=== PATIENT | female | born 1945 | race Caucasian/White ===

== ENCOUNTER → 2016-04-08 | Outpatient (CLI) | payer MEDICARE, BC ==
[~2016-04-08] MED LIST: HYDR-3583 PO; NICO14DI T-DERMAL; NYST1000 SWISH-SWAL; NYST15T; TRIA.025%T EXT; UMEC1AER INH; [UNRECOGNIZED DRUG - OTHER]
[2016-04-08 13:43] LABS: AUTOMATED NEUTROPHIL # 5.6 TH/MM3 (1.8-7.7); BASOPHIL # 0.1 TH/MM3 (0-0.2); BASOPHIL % 0.8 % (0.0-2.0); EOSINOPHIL # 0.1 TH/MM3 (0-0.4); EOSINOPHIL % 1.2 % (0.0-4.0); HEMATOCRIT 45.4 % (35.0-46.0); HEMO FLAGS DIFF FINAL; LYMPH % 20.7 % (9.0-44.0); LYMPHOCYTE # 1.7 TH/MM3 (1.0-4.8); MEAN CELL VOLUME 93.6 FL (80.0-100.0); MEAN CORPUSCULAR HEMOGLOBIN 31.6 PG (27.0-34.0); MEAN CORPUSCULAR HGB CONC 33.8 % (32.0-36.0); MONO % 9.6 % (0.0-8.0); NEUT % 67.7 % (16.0-70.0); PLATELET COUNT 238 TH/MM3 (150-450); RED BLOOD COUNT 4.85 MIL/MM3 (4.00-5.30); RED CELL DISTRIBUTION WIDTH 14.3 % (11.6-17.2); WHITE BLOOD COUNT 8.2 TH/MM3 (4.0-11.0)
[2016-04-08 13:45] LABS: BACTERIA, URINE RARE /hpf; BLOOD, URINE NEG (NEG); GLUCOSE,URINE NEG (NEG); KETONE, URINE NEG (NEG); NITRITE,URINE NEG (NEG); SQUAMOUS EPITHELIAL CELL URINE <1 /hpf (0-5); URINE COLOR LIGHT-YELLOW (YELLW/STRAW)
[2016-04-08 13:47] LABS: COMMENT (UR) CULT NOT INDICATED; CULTURE IF INDICATED CULT NOT INDICATED
[2016-04-08 13:49] LABS: APTT (PATIENT) 26.2 SEC (24.3-30.1); PROTHROMBIN TIME - PATIENT 11.1 SEC (9.8-11.6)
[2016-04-08 14:10] LABS: ALKALINE PHOSPHATASE 89 U/L (45-117); ALT (GPT) 20 U/L (10-53); ANION GAP 8 MEQ/L (5-15); AST (GOT) 20 U/L (15-37); BICARBONATE 28.4 MEQ/L (21.0-32.0); BLOOD UREA NITROGEN 17 MG/DL (7-18); CHLORIDE 103 MEQ/L (98-107); GLOMERULAR FILTRATION RATE 77 ML/MIN (>89); GLUCOSE,FASTING 92 MG/DL (74-99); SODIUM (NA) 139 MEQ/L (136-145); TOTAL BILIRUBIN ADULT 0.7 MG/DL (0.2-1.0)
--- NOTE | 2016-04-08 14:44 | RADRPT ---
EXAM DATE/TIME: 04/08/2016 14:24 [facility] COMPARISON: CHEST SINGLE AP, March 04, 2013, 16:04. INDICATIONS : Evaluate for Pneumonia, Pneumothorax or communicable disease MEDICAL HISTORY : None. SURGICAL HISTORY : Cervical fusion ENCOUNTER: Initial ACUITY: 1 day PAIN SCORE: 0/10 LOCATION: Bilateral chest FINDINGS: Examination reveals severe emphysema. No evidence of focal infiltrate or pleural effusion. Cardiomedi astinal contours are satisfactory. There is mild kyphoscoliosis present involving the spine. CONCLUSION: Severe emphysematous change. No acute or focal lung disease Braxton Ibarra MD on April 08, 2016 at 14:42 Board Certified Radiologist. This report was verified electronically.
--- NOTE | 2016-04-09 22:34 | EKG ---
Date Performed: 04/08/2016 Time Performed: 13:27:21 PTAGE: 71 years EKG: SINUS BRADYCARDIA WITH SHORT CA INTERVAL INCOMPLETE RIGHT BUNDLE BRANCH BLOCK BORDERLINE EC G Compared to prior tracing no significant change DOCTOR: Maira Marshall Interpretating Date/Time 04/09/2016 22:32:04
== END ==
LOC: CPRE 13:01
PROVIDERS: ATTEND Neurological Surgery
DX: Z01.810 Encounter for preprocedural cardiovascular examination (principal); Z01.811 Encounter for preprocedural respiratory examination; Z01.812 Encounter for preprocedural laboratory examination; M50.00 Cervical disc disorder with myelopathy, unspecified cervical region
CPT/HCPCS: 36415; 71020; 80053; 81001; 85025; 85610; 85730; 93005

== ENCOUNTER 2016-04-15 06:27 | Observation (INO) | payer MEDICARE, BC ==
[~2016-04-15] VITALS: Ht 139.7 cm; Wt 35.7 kg
[~2016-04-15 06:27] MED LIST changes: -HYDR-3583 PO; -NICO14DI T-DERMAL; -NYST1000 SWISH-SWAL; -[UNRECOGNIZED DRUG - OTHER]
[2016-04-15] MEDS ORDERED: METOPROLOL TARTRATE 25 MG TAB PO PRN (07:00)
[2016-04-15] MEDS ORDERED: INSULIN HUMAN REGULAR 1,000 UNITS/10 ML VIAL SQ PRN (07:00)
[2016-04-15] MEDS ORDERED: SODIUM CHLORID 0.9% 500 ML IV SCH (07:00)
[2016-04-15] MEDS ORDERED: VANCOMYCIN 1000 MG/NS 250 ML (for <70 kg) IV SCH ×2 (07:00)
[2016-04-15] MEDS ORDERED: LACTATED RINGER'S 1000 ML IV SCH (07:00)
[2016-04-15] MEDS ORDERED: ceFAZolin 2 GM PREMIX 50 ML IV SCH (07:00)
[2016-04-15] MEDS ORDERED: MICROFIBRILLAR COLLAGEN HEMOSTAT 70 X 35 MM BANDAGE ONE (07:19)
[2016-04-15] MEDS ORDERED: VANCOMYCIN HCL 1000 MG VIAL ONE (07:19)
[2016-04-15] MEDS ORDERED: GELFOAM SIZE 100 ONE (07:20)
[2016-04-15] MEDS ORDERED: THROMBIN (TOPICAL) 5,000 UNIT VIAL ONE (07:20)
[2016-04-15] MEDS ORDERED: NYST1000 SWISH-SWAL (07:20)
[2016-04-15 07:21] VITALS: BP 127/63; PULSE 57; RESP 22; TEMP 98.1; O2SAT 100
[2016-04-15] MEDS ORDERED: SODIUM CHLOR 0.9% 250 ML INJ 250 ML ONE (07:21)
[2016-04-15] MEDS ORDERED: GENTAMICIN SULFATE 80 MG/2 ML VIAL ONE (07:21)
[2016-04-15] MEDS ORDERED: MIDAZOLAM HCL 2 MG/2 ML VIAL ONE (08:30)
[2016-04-15] MEDS ORDERED: ONDANSETRON HCL 4 MG/2 ML VIAL IV PUSH ONE (08:48)
[2016-04-15] MEDS ORDERED: ePHEDrine/NS 25 MG/5 ML SYR IV ONE (08:48)
[2016-04-15] MEDS ORDERED: PROPOFOL 200 MG/20 ML AMP IV ONE (08:48)
[2016-04-15] MEDS ORDERED: LACTATED RINGER'S 1000 ML INJ 1,000 ML IV ONE (08:48)
[2016-04-15] MEDS ORDERED: PHENYLEPH/NS 1000 MCG/10 ML SYR IV ONE (08:48)
[2016-04-15] MEDS ORDERED: ARTIFICIAL TEARS OPTH OINT 3.5 APPLIC/3.5 GM TUBO ONE (11:44)
[2016-04-15] MEDS ORDERED: fentaNYL CITRATE 250 MCG/5 ML AMP ONE (11:44)
[2016-04-15] MEDS ORDERED: CYCLOBENZAPRINE HCL 10 MG TAB PO PRN (11:45)
[2016-04-15] MEDS ORDERED: MENTHOL LOZENGE SUCK-ON PRN (11:45)
[2016-04-15] MEDS ORDERED: SODIUM CHLORIDE 0.9% FLUSH 5 ML FLUSH IVF PRN (11:45)
[2016-04-15] MEDS ORDERED: BISACODYL 10 MG SUPP PR PRN (11:45)
[2016-04-15] MEDS ORDERED: MORPHINE SULFATE 4 MG/ML INJ IV PUSH PRN ×2 (11:45)
[2016-04-15] MEDS ORDERED: ACETAMINOPHEN/HYDROcodone 325 MG/10 MG TAB PO PRN ×2 (11:45)
[2016-04-15] MEDS ORDERED: ONDANSETRON HCL 4 MG/2 ML VIAL IV PRN (11:45)
[2016-04-15] MEDS ORDERED: NICO14DI T-DERMAL (11:47)
[2016-04-15] MEDS ORDERED: HYDR-3583 PO (11:49)
--- NOTE | 2016-04-15 12:05 | PD.OP ---
Operative Report Date of Surgery: Apr 15, 2016 Preoperative Diagnosis: CERVICAL SPINAL STENOSIS WITH MYELOPATHY Postoperative Diagnosis: CERVICAL SPINAL STENOSIS WITH MYELOPATHY Procedure: c3-4 cervical discectomy, interbody arthodhesis using PEEK cage filled with autologous bone graft, Vault C plate and screws. Anesthesia: GENERAL Surgeon: Gonzalo Fung Support Teacher(s): TALIA Wade Operation and Findings: INDICATIONS FOR THE PROCEDURE Ms Rios is a 71 year-old female who presented with intractable neck pain and clinical evidence of cervical myelopathy. She had significant stenosis and mass effect on the anterior spinal cord with edema and myelomalasia. She has failed maximum nonsurgical management including multiple modalities of conservative treatment as well as pain management interventions by an interventional pain specialist. A surgical decompression and arthrodhesis were indicated. The [id number] details of the procedure, indications, alternatives, risks and potential complications were fully discussed with the patient. The patient fully understood. All The questions were answered. No guarantees were given. The patient voiced requesting the procedure and provided informed consents. The patient was offered the alternative of delaying the procedure and continuing with nonsurgical management. DETAILS OF THE SURGICAL PROCEDURE After the induction of general anesthesia, endotracheal intubation was performed. A Eid catheter, bilateral AILEEN hose, and sequential compression devices were placed and kept throughout the procedure. Placement of electrodes for neurophysiological monitoring of the somatosensorial evoked potentials. motor evoked potentials, and EMG as well as laryngeal nerve monitoring was achieved. The patient was positioned supine on a Kanu table with the head over a gel doughnut. All pressure points were carefully padded with eggcrate mattress. The eyes were tapped shut after ointment was applied by the anesthesiologist to prevent corneal abrasion. A Calin hugger was placed over the exposed lower body to maintain control of the core body temperature. The electrophysiological team placed the needles and electrodes in their proper location and baseline SSEP's and motor evoked potentials were registered. The anterior cervical region was prepped and draped in the usual sterile fashion. A localizing x-ray was performed with a C-arm. The surgical procedure was performed in several steps as follow: SURGICAL APPROACH A skin incision was made along the superior cervical crease with a #10 blade. The dissection was carried out through the platysma exposing the sternocleidomastoid muscle. The cervical spine was approached following the fascial layers of the neck just medial to the anterior border of the sternocleidomastoid and carotid sheath by a combination of sharp and dull dissection. The tissues were severely abnormal and scarred, related to the previous radiation therapy to the neck. The omohyoid muscle was identified and carefully dissected laterally and the deep cervical fascia was carefully opened. The longus colli muscles were retracted to each side of the midline. An anterior osteophytic spur was removed. A marker was placed at the disc space C3-4 and a cross-table lateral x-ray performed with a C-arm. SURGICAL DECOMPRESSION In order to decompress the anterior surface of the spinal cord it was necessary to preform a microsurgical resection of the disk at C3-4. At this point in the procedure the operating microscope was draped in the usual sterile fashion and brought to the field. The rest of the surgical procedure was performed using microdissection technique with the exception of the closure. Under the operative microscopic, a self-retaining retractor was placed underneath the longus colli muscle. The annulus was incised with a #15 blade and a microdiscectomy was then carefully carried out using angled curets and pituitary forceps. There was a osteophitic/disk complex, which was producing severe mass effect and compression of the spinal cord. The posterior longitudinal ligament was then elevated with an angled curet and incised with a 15 bladed knife. A careful resection of the posterior longitudinal ligament was carried out using a thin footplate 2 mm Kerrison.A nerve hook was used to assess the epidural space behind the vertebral bodies C3 and C4 in search for residual disk fragments. The margins of the posterior endplates at C3 and C4 were carefully drilled and undercut with a TPS drill under high magnification. The decompression was then carried out laterally, and a bilateral foraminotomy was performed with a 2mm thin foot Kerrison. Then the vertebral bodies above and below the disk space were undercut using a 2 mm thin foot Kerrison. The epidural space was the systematically assessed with a nerve hook in search for disk fragments. An excellent decompression was achieved in both, the dural sac and bilateral exiting nerve roots. The incision was then irrigated with a large amount of antibiotic solution INTERBODY ARTHRODHESIS In order to avoid collapse of the disk space which would result in bilateral foraminal stenosis, and to increase the chances of a successful fusion, it was necessary to place an interbody cage filled with autologous bone. At this point of the procedure, the superior and inferior endplates were then evenly decorticated with a TPS drill. The use of a drill in combination with a curette allowed me to systematically remove the cartilaginous endplates, exposing healthy bone for the interbody arthrodesis. forteen millimeters distraction pins were then placed at the vertebral bodies adjacent to the disk space, and gentle distraction was applied. The size of the interbody cage was then assessed using different size spacers, and a rasp was used to ensure no residual cartilage. A PEEK cage of the appropriate size was selected, and the interbody arthrodesis was then preformed by carefully impacting a PEEK cage filled with autologous bone graft to the disc space C3-4. An excellent position of the cage was achieved. This was was confirmed anatomically by feeling the space posterior to the implant and distance to the anterior surface of the dural sac. Radiological confirmation of the position was performed with a cross lateral xray performed with the C-arm. INTERNAL INSTRUMENTAL FIXATION Once that the interbody device was in an appropriate position, it was necessary to stabilize the spine with anterior instrumentation. Anterior instrumentation has demonstrated to increase the rate of fusion, accelerate the patient's recovery, and decrease the rate of failed interbody grafts. The Titanium plate was attached to the anterior surface of the Vault C PEEK cage. Leather Sponger holes were then drilled using the drill, and the plate was then secured to the spine using self-drilling, self-tapping screws. A proper purchase was achieved with all screws and the position of the cage, plate and screws, and alignment of the spine was assessed anatomically by direct visualization, and radiologically by performing a cross lateral xray of the cervical spine with the C-arm. CLOSURE The incision was irrigated with several liters of antibiotic solution. Hemostasis was achieved with a bipolar. The screws were locked to prevent backing out. The incision was then closed in layers. 3-0 Vicryl with interrupted sutures was used to close the platysma and subcutaneous tissue. The skin was closed with 4-0 running subcuticular Vicryl and Dermabond was applied. The drain was secured with a 3-0 nylon. At the end of the procedure the sponge, needle and instrument counts were all correct. The estimated blood loss was less than 50 cc. No blood transfusion was given. No intraoperative complications occurred. The patient received prophylactic antibiotics. The patient was then extubated and transferred to the recovery room in stable condition. Gonzalo Fung MD Apr 15, 2016 12:05
[2016-04-15] MEDS: NYSTATIN SUSP 500,000 U/5 ML CUP SWISH-SWAL SCH ×2 (13:00→20:28)
[2016-04-15] MEDS ORDERED: NS + KCL 20 MEQ INJ 1,000 ML IV SCH (13:00)
[2016-04-15] MEDS ORDERED: NICOTINE 14 MG/24 HR PATCH TD ONE (13:00)
[2016-04-15] MEDS: DEXAMETHASONE SOD PHOS 4 MG/ML VIAL IV SCH (13:31)
[2016-04-15 13:48] VITALS: BP 116/67; PULSE 62; RESP 16; TEMP 95; O2SAT 100
[2016-04-15 19:30] VITALS: BP 125/58; PULSE 65; RESP 17; TEMP 96; O2SAT 99
--- NOTE | 2016-04-15 19:43 | RADRPT ---
EXAM DATE/TIME: 04/15/2016 09:01 [facility] COMPARISON: CT CERVICAL SPINE W/O CONTRAST W 3D RECON, April 29, 2012, 0:54. INDICATIONS : Fusion C3,C4. MEDICAL HISTORY : None. SURGICAL HISTORY : Fusion, cervical. ENCOUNTER: Initial ACUITY: 1 day PAIN SCORE: Non-responsive. LOCATION: Cervical spine. FINDINGS: Two projection examination was performed. Postsurgical changes following anterior cervical fusion are noted. There is an old fusion plate exten ding from C4-C6 which appear stable compared to prior CT. A new fusion apparatus has been inserted between the C3 and C4 vertebral bodies. There vertebral cage is identified in place. Cervical alignment appears to be well-maintained. CONCLUSION: Status post fusion at C3-4 with satisfactoryly maintained alignment. Be Restrepo MD on April 15, 2016 at 19:38 Board Certified Radiologist. This report was verified electronically.
[2016-04-15 19:58] VITALS: O2SAT 99
[2016-04-15] MEDS: SODIUM CHLORIDE 0.9% FLUSH 5 ML FLUSH IVF SCH (20:28)
[2016-04-15] MEDS: DOCUSATE SODIUM 100 MG CAP PO SCH (20:28)
[2016-04-15] MEDS: ACETAMINOPHEN 325 MG TAB PO PRN (20:35)
[2016-04-16] MEDS: DEXAMETHASONE SOD PHOS 4 MG/ML VIAL IV SCH ×3 (00:12→12:52)
[2016-04-16] MEDS: ceFAZolin 2 GM PREMIX 50 ML IV SCH ×2 (00:12→08:54)
[2016-04-16 00:25] VITALS: BP 100/54; PULSE 58; RESP 16; TEMP 95.6; O2SAT 98
[2016-04-16 04:25] VITALS: BP 105/60; PULSE 59; RESP 16; TEMP 97.7; O2SAT 98
[2016-04-16] MEDS: ACETAMINOPHEN 325 MG TAB PO PRN (05:57)
[2016-04-16] MEDS: DOCUSATE SODIUM 100 MG CAP PO SCH (07:59)
[2016-04-16 08:00] VITALS: BP 97/57; PULSE 66; RESP 18; TEMP 97.5; O2SAT 99
[2016-04-16] MEDS: SODIUM CHLORIDE 0.9% FLUSH 5 ML FLUSH IVF SCH (08:09)
[2016-04-16] MEDS: NYSTATIN SUSP 500,000 U/5 ML CUP SWISH-SWAL SCH ×2 (08:09→12:52)
[2016-04-16] MEDS ORDERED: PANTOPRAZOLE SOD 40 MG DELAYED RELEASE TAB PO SCH (09:00)
[2016-04-16 11:28] VITALS: O2SAT 98
[2016-04-16 12:00] VITALS: BP 100/60; PULSE 56; RESP 18; TEMP 96.4; O2SAT 99
--- NOTE | 2016-04-16 12:05 | HHI.DCPOC ---
Discharge Care Plan Diagnosis: (1) Status post cervical arthrodesis Goals to Promote Your Health * To prevent worsening of your condition and complications * To maintain your health at the optimal level Directions to Meet Your Goals Take your medications as prescribed Follow your dietary instruction Follow activity as directed Keep your appointments as scheduled Take your immunizations and boosters as scheduled If your symptoms worsen call your PCP, if no PCP go to Urgent Care Center or Emergency Room Smoking is Dangerous to Your Health. Avoid second hand smoke Call the 24-hour hour crisis hotline for domestic abuse at Jenny Singleton Apr 16, 2016 12:05
--- NOTE | 2016-04-16 12:07 | HHI.DS ---
Discharge Summary Admission Date Apr 15, 2016 at 11:47 Discharge Date: Apr 16, 2016 Admitting Diagnosis s/p ACDF (1) Status post cervical arthrodesis ICD Code: Z98.1 Brief History Ms Rios is a 71 year-old female who presented with intractable neck pain and clinical evidence of cervical myelopathy. She had significant stenosis and mass effect on the anterior spinal cord with edema and myelomalacia. She has failed maximum nonsurgical management including multiple modalities of conservative treatment as well as pain management interventions by an interventional pain specialist. A surgical decompression and arthrodesis were indicated. Imaging Last Impressions Cervical Spine X-Ray 04/15/16 0000 Signed Impressions: Service Date/Time: Friday, April 15, 2016 09:01 - CONCLUSION: Status post fusion at C3-4 with satisfactoryly maintained alignment. Be Restrepo MD Hospital Course Ms. Rios underwent a C3-4 cervical discectomy, interbody arthrodesis using PEEK cage filled with autologous bone graft, Vault C plate and screws on Mar. Her surgery went well without complications. She is doing well. She will be discharged home in stable conditions. Wound care and activity restrictions were discussed. Pt Condition on Discharge: Stable Discharge Disposition: Discharge Home Discharge Instructions DIET: Follow Instructions for: Heart Healthy Diet ACTIVITIES You can perform: Weight Bearing As [place] ADDITIONAL Activity Instructio: Avoid strenuous activities, avoid heavy lifting, overhead activities, excessive pushing, pulling, bending, other activities that will place stress on the spine. Wear cervical collar at all times, may remove when eating. Avoid falls. New Medications: Hydrocodone-Acetaminophen (Hydrocodone-Acetaminophen) 10-325 mg Tab 1 TAB PO Q4H PRN PAIN SCALE 1 TO 10 #62 Ref 0 TAB Continued Medications: Nicotine Patch (Nicotine Patch) 14 Mg/24 Hr Patch 14 MG T-DERMAL DAILY Smoking Cessation #30 Ref 0 PATCH Nystatin Liq (Nystatin Liq) 100,000 unit/ml Susp 5 ML SWISH-SWAL QID Infection Ref 0 ML Nystatin Topical (Nystatin Topical) 100,000 unit/gm Cream Unknown Dose USE ON FEET PRN ITCHING #15 Triamcinolone Topical (Triamcinolone Topical) 0.025% Cream Unknown Dose EXT PRN ITCHING #15 Jenny Singleton Apr 16, 2016 12:07
[2016-04-16] MEDS ORDERED: REMOVE OLD NICOTINE PATCH TD ONE (13:00)
[2016-04-28] MEDS ORDERED: [UNRECOGNIZED DRUG - OTHER] ×2 (12:33→13:32)
== END 2016-04-16 13:55 | disposition home or self-care (01) ==
LOC: HSDC 06:27 → EDSTATUS 08:30 → HSDI 11:47 → N06B 12:56
PROVIDERS: ADMIT Neurological Surgery; ATTEND Neurological Surgery
DX: M48.02 Spinal stenosis, cervical region (principal); M50.01 Cervical disc disorder with myelopathy, high cervical region
CPT/HCPCS: 00600; 20936; 22551; 72040; 76000; 94150; 97161; C1713; G0378; G8987; G8988; J0690; J1100; J1580; J2250; J2270; J2370; J2405; J3010; J3370; J3480; J7050; J7120; L0150; L0172

== ENCOUNTER → 2016-04-29 | Outpatient (CLI) | payer MEDICARE ==
[~2016-04-29] MED LIST changes: +HYDR-3583 PO; +NICO14DI T-DERMAL; +NYST1000 SWISH-SWAL; -UMEC1AER INH; +[UNRECOGNIZED DRUG - OTHER]
== END ==
LOC: HORT 12:11
PROVIDERS: ATTEND Neurological Surgery
DX: Z47.89 Encounter for other orthopedic aftercare (principal)
CPT/HCPCS: L0172

== ENCOUNTER → 2016-07-18 | Outpatient (CLI) | payer MEDICARE, BC ==
[~2016-07-18] MED LIST changes: -HYDR-3583 PO; -NICO14DI T-DERMAL; -NYST1000 SWISH-SWAL; -NYST15T; -TRIA.025%T EXT
--- NOTE | 2016-07-18 11:24 | RADRPT ---
EXAM DATE/TIME: 07/18/2016 00:00 [facility] COMPARISON: No previous studies available for comparison. INDICATIONS : Dysphagia. FLUORO TIME: 1.4 minutes IMAGE COUNT: 0 CONTRAST: Dose as prescribed by speech pathologist. MEDICAL HISTORY : aspiration SURGICAL HISTORY : 3 cervical spine surgeries, endoscopy ENCOUNTER: Initial ACUITY: 3 months PAIN SCORE: 0/10 LOCATION: Bilateral neck FINDINGS: A modified barium swallow was performed with speech pathology. Patient was given a variety of liquids to swallow. Vestibular penetration and aspiration observed. For a full detailed report, see report by the speech pathologist. CONCLUSION: Multiple episodes of aspiration observed. Please see speech pathologist report for full description. Wilbur Brady MD on July 18, 2016 at 11:22 Board Certified Radiologist. This report was verified electronically.
== END ==
LOC: HRAD 10:44
PROVIDERS: ATTEND Family Medicine
DX: R13.10 Dysphagia, unspecified (principal)
CPT/HCPCS: 74230; 92611; G8996; G8997; G8998

== ENCOUNTER → 2016-09-02 | Outpatient (CLI) | payer MEDICARE ==
[2016-09-02 15:42] LABS: BASOPHIL # 0.1 TH/MM3 (0-0.2); BASOPHIL % 0.7 % (0.0-2.0); EOSINOPHIL # 0.1 TH/MM3 (0-0.4); EOSINOPHIL % 0.8 % (0.0-4.0); HEMATOCRIT 42.1 % (35.0-46.0); HEMO FLAGS DIFF FINAL; LYMPH % 25.4 % (9.0-44.0); MEAN CELL VOLUME 93.1 FL (80.0-100.0); MEAN CORPUSCULAR HEMOGLOBIN 31.7 PG (27.0-34.0); NEUT % 64.1 % (16.0-70.0); PLATELET COUNT 235 TH/MM3 (150-450); RED BLOOD COUNT 4.52 MIL/MM3 (4.00-5.30); RED CELL DISTRIBUTION WIDTH 14.6 % (11.6-17.2); WHITE BLOOD COUNT 7.7 TH/MM3 (4.0-11.0)
[2016-09-02 16:09] LABS: ALT (GPT) 27 U/L (10-53); ANION GAP 5 MEQ/L (5-15); BICARBONATE 31.3 MEQ/L (21.0-32.0); BLOOD UREA NITROGEN 21 MG/DL (7-18); CHLORIDE 104 MEQ/L (98-107); GLOMERULAR FILTRATION RATE 96 ML/MIN (>89); POTASSIUM 3.9 MEQ/L (3.5-5.1); SODIUM (NA) 140 MEQ/L (136-145)
[2016-09-02 16:19] LABS: ALKALINE PHOSPHATASE 80 U/L (45-117); AST (GOT) 26 U/L (15-37); TOTAL BILIRUBIN ADULT 0.5 MG/DL (0.2-1.0)
== END ==
LOC: PLAB 11:28
PROVIDERS: ATTEND Family Medicine
DX: R63.4 Abnormal weight loss (principal); M62.830 Muscle spasm of back; R53.83 Other fatigue
CPT/HCPCS: 36415; 80053; 84443; 85025